=== PATIENT | female | born 1985 | race Caucasian/White ===

== ENCOUNTER → 2023-05-14 14:17 | Outpatient (REF) | payer OTHER, SELFPAY | LOC: WDC 14:17 | PROVIDERS: ATTENDING PHYSICIAN Nurse Practitioner Family | DX: Z12.31 Encounter for screening mammogram for malignant neoplasm of breast (principal); Z87.81 Personal history of (healed) traumatic fracture | CPT/HCPCS: 77063; 77067; 77080 ==

== ENCOUNTER → 2023-05-21 09:27 | Outpatient (REF) | payer OTHER, SELFPAY | LOC: WDC 09:27 | PROVIDERS: ATTENDING PHYSICIAN Nurse Practitioner Family | DX: R92.8 Other abnormal and inconclusive findings on diagnostic imaging of breast (principal) | CPT/HCPCS: 76642 ==

== ENCOUNTER → 2023-05-25 10:57 | Outpatient (REF) | payer OTHER, SELFPAY | LOC: RAD 10:57 | PROVIDERS: ATTENDING PHYSICIAN Physician Assistant | DX: R07.81 Pleurodynia (principal) | CPT/HCPCS: 71046 ==

== ENCOUNTER 2023-05-27 14:49 | Emergency (ER) | payer OTHER, SELFPAY ==
[2023-05-27 14:54] VITALS: BP 160/107
[2023-05-27 15:15] LABS: % Basophils 0.4 % (0-2); % Eosinophils 0.1 % (0-6); % Immature Granulocytes 0.4 % (0-0.5); % Lymphocytes 17.5 % (20.5-51.1); % Monocytes 5.6 % (1.7-9.3); Absolute Basophils 0.1 10^3/uL (0-0.2); Absolute Immature Granulocytes 0.1 10^3/uL (0-0.05); Absolute Lymphocytes 2.6 10^3/uL (1.2-3.4); Absolute Monocytes 0.8 10^3/uL (0.1-0.6); Absolute Neutrophils 11.3 10^3/uL (1.4-6.5); Hematocrit 41.1 % (37.0-47.0); Hemoglobin 14.5 g/dL (12.0-16.0); Mean Corp Hgb Conc. 35.3 g/dL (33.0-37.0); Mean Corpuscular Volume 85.1 fL (81.0-99.0); Mean Platelet Volume 11.2 fL (7.4-10.4); Nucleated Red Blood Cells % 0 %; Platelet Count 297 10^3/uL (130-400); Red Blood Cell Count 4.83 10^6/uL (4.20-5.40); Red Cell Dist. Width 12.5 % (11.5-14.5); White Blood Cell Count 14.8 10^3/uL (4.8-10.8)
[2023-05-27 15:30] LABS: ALT (SGPT) 31 U/L (0-35); AST (SGOT) 25 U/L (14-36); Albumin 4.8 g/dl (3.5-5.0); Alkaline Phosphatase 103 U/L (38-126); Blood Urea Nitrogen 15 mg/dl (7-17); Calcium 9.7 mg/dl (8.4-10.2); Carbon Dioxide 29 mmol/L (22-30); Chloride 104 mmol/L (98-107); Glucose 99 mg/dl (70-99); HCG, Serum Qualitative Screen Negative; Potassium 4.3 mmol/L (3.5-5.1); Sodium 139 mmol/L (135-145); Total Bilirubin 0.7 mg/dl (0.2-1.3); Total Protein 7.5 g/dl (6.3-8.2); eGFR > 60.00
[2023-05-27 15:40] LABS: Troponin I < 0.012 ng/ml
--- NOTE | 2023-05-27 18:16 | ED.GENMED ---
History of Present Illness
General
Chief Complaint: Chest Pain
Source: patient
Exam Limitations: none
Time Seen by Provider: 05/27/23 17:56
Travel History
Have you had any contact with someone who has COVID-19?: No
Do you have any symptoms of coronavirus? Fever > 100 degrees, chills, cough, shortness of breath, sore throat, loss of taste or smell, muscle aches, or headache?: No
History of Present Illness
History of Present Illness:
This is a 38 year old female that comes in with c/o chest pain for a month. State that she went to see her PCP and they thought it was a pulled muscle. States that she was given Naproxen and an inhaler. States that this did not help at all. States
that the pain is on the right side under the ribs ans wraps around to the back. States that they did a chest x-ray. States that the pain was worse since and she called the PCP and she was to have a CT tomorrow but her pain increased so was
told to come to the ER. States that she has chest pain, SOB, pain with coughing. and that her pain is under the sternum and still goes under the breast to the back. States that she has a headache, dizziness. States that she is also on a steroid
taper the 3rd day. Denies any fever, chills, abd pain, nausea, vomiting, diarrhea, Urinary burning.
Past History
Past History
ED Past Medical History: None; Negative Asthma, HTN, Hypercholesterolemia or NIDDM
ED Past Surgical History: Orthopedic ([place] knee surgery, Left ankle surgery)
Social History
Tobacco: Former smoker
Alcohol: Occasional
Personal:
Living: with family
Review of Systems
Review of Systems
All Other Systems: ROS reviewed and negative except as documented in HPI and ROS
Constitutional: Reports no symptoms; Denies fever or chills
EENT: Reports no symptoms
Respiratory: Reports cough and trouble breathing
Cardiac: Reports chest pain
ABD/GI: Reports no symptoms; Denies abdominal pain, nausea or vomiting
: Reports no symptoms
Musculoskeletal: Reports no symptoms
Skin: Reports no symptoms
Neurological: Reports dizzy and headache
Psychiatric: Reports no symptoms
Phy Exam
General Physical Exam
General Presentation: mild distress
General age: appears stated age
General Skin: warm and dry
General Habitus: normal
General Mental: alert
General Hydration: appears well hydrated
ENT Exam
ENT Exam: TM's normal, pharynx normal and neck supple
Eye Exam
Eye Exam: EOMI
Cardiovascular Exam
Cardiovascular Exam: regular rate/rhythm, no edema, no murmur and normal peripheral pulses
Pulmonary Exam
Pulmonary Exam: lungs clear, no respiratory distress, no rales, chest non tender, no crackles, no rhonchi, no wheezing and other (Occasional dry cough noted)
Gastrointestinal Exam
Gastrointestinal Exam: normal bowel sounds, non tender, soft, no organomegaly, no pulsatile mass and non distended
Musculoskeletal Exam
Musculoskeletal Exam: full ROM and no edema
Skin Exam
Skin Exam: normal color, warm/dry, no rash and no petechia
Psychiatric Exam
Psychiatric Exam: normal mood/affect
Scores
Heart Score for Chest Pain Patients
STEMI patient?: Not applicable
Course
Orders/Labs/Results
Orders:
Orders
05/27/23 14:50
EKG [Electrocardiogram (*1)] Urgent
Reason for Study: Chest Pain
05/27/23 14:51
EKG- Treatment ONCE
05/27/23 15:02
Test Result ONCE
Chest [CR Chest - 2 Views ] Urgent
Comment:
Reason For Exam: chest pain, shortness of breath
05/27/23 15:06
CBC/With Diff [Complete Blood Count/With Diff] Urgent
CMP [Comprehensive Metabolic Panel] Urgent
HCG, Serum Qualitative Screen Urgent
Troponin I Urgent
05/27/23 18:19
Dexamethasone Sod Phosphate [Decadron] 10 mg IV NOW STA
Ketorolac [Toradol] 30 mg IV NOW STA
Pantoprazole [Protonix IV] 40 mg IV NOW STA
05/27/23 18:22
CT Chest Angio W/wo Iv Contras Urgent
Comment: attention aorta
Reason For Exam: Chest pain, SOB, cough
05/27/23 19:33
HydrALAZINE [Apresoline] 5 mg IV NOW STA
Abnormal Lab Results
05/27/23
15:06
WBC 14.8 H 10^3/uL
(4.8-10.8)
MPV 11.2 H fL
(7.4-10.4)
Abs Immat Gran (auto) 0.1 H 10^3/uL
(0-0.05)
Absolute Neuts (auto) 11.3 H 10^3/uL
(1.4-6.5)
Absolute Monos (auto) 0.8 H 10^3/uL
(0.1-0.6)
Neutrophils % 76.0 H %
(42.2-75.2)
Lymphocytes % 17.5 L %
(20.5-51.1)
05/27/23 15:06
05/27/23 15:06
Leukocytosis, Troponin <0.012, HCG negative.
Vital Signs
Initial and Last Documented VS:
Initial Vital Signs
Temp Pulse Resp BP Pulse Ox
98.0 F 104 18 160/107 100
05/27/23 14:54 05/27/23 14:54 05/27/23 14:54 05/27/23 14:54 05/27/23 14:54
Last Documented Vital Signs
Temp Pulse Resp BP Pulse Ox
98.0 F 85 16 170/107 97
05/27/23 14:54 05/27/23 19:38 05/27/23 18:45 05/27/23 19:38 05/27/23 19:32
MDM/Problems Addressed
Differential Diagnosis Includes:
Aortic dissection, Gallbladder disease, PE
MDM/Problems Addressed:
This is a 38 year old female that comes in with c/o chest pain for the past month. States that she is SOB, has a cough and that her pain is continuing to get worse.
Will get labs CTA of chest. US limited of gallbladder.
Back into See patient. Explained that her CT is normal. Gallbladder is contracted. Will medicated patient for Hypertension and then recheck. BP at this time 170/107
BP down to 157/104. Will place patient on Lisinopril and have her follow up with the family doctor. Patient to return with any concerns.
BP rechecked 157/97
Chronic conditions affecting care:
NA
Acute Exacerbation and/or Progression of Chronic Illness:
NA
*Radiology
Radiology exam reviewed: radiology read reviewed (CTA chest- No evidence of thoracic aortic aneurysm/dissection or central pulmonary embolism. Markedly contracted gallbladder, likely postprandial, large volume fluid material seen within the stomach.
Chest=Slight soft tissue prominence again seen in the expected location of the ascending thoracic ) and other (Chest cont- thoracic aorta, cannot exclude aneurysm or dissection. )
*Pulse Oximetry
Patient hypoxic: yes
*EKG
Interpreted by ED Provider?: Yes
Heart Rate: 106
Rate: tachycardiac
Rhythm: sinus tachycardia
[place]: normal axis
Interval: normal interval
QRS Pattern: normal QRS
Ischemia: non-specific ST changes
*Critical Care Note
Total Time (30-74mins, 75-104mins- exclusive of procedures): Not Applicable
ED Attending Note
-
Portions of this chart may have been created with voice recognition software.� Occasional wrong word or��sound alike� substitutions may have occurred due to the inherent limitations of voice recognition software.
Discharge Plan
Departure
Patient Disposition: Home (Routine Discharge)
Date of Disposition: 05/27/23
Time of Disposition: 20:56
Patient with high blood pressure during this ER visit?: Yes
Condition: Good
Covid-19: Not Applicable
Discharge Problem:
Chest pain
Instructions: Chest Pain PCP Follow Up, BLOOD PRESSURE
Prescriptions:
New
lisinopril 5 mg tablet
5 mg PO DAILY Qty: 30 0RF
pantoprazole [Protonix] 40 mg tablet,delayed release (DR/EC)
40 mg PO DAILY Qty: 30 0RF
Referrals:
Tess Pearl CRNP [Family Provider] - Follow up in 2-3 days
Activity Restrictions/Additional Instructions:
As discussed, your blood work shows that the WBC's are mildly elevated. This can happen with stress. Your CT of the chest is normal. You have been given medication for your Hypertension. Please take as directed and follow up with the family doctor
for recheck. You have also been given a prescription to help with any reflux. Please take them at least 2 hour apart. IF YOU HAVE INCREASED OR CHANGING PAIN, OR YOU HAVE ANY OTHER CONCERNS PLEASE RETURN TO THE EMERGENCY ROOM
Interventions
Interventions:
*Risk Screen - Suicide Last Done: 05/27/23 14:54
*General Assessment Last Done: 05/27/23 14:54
*Neglect/Abuse Screening Last Done: 05/27/23 14:54
ED- Fall Risk Assessment Last Done: 05/27/23 18:23
*ED COVID-19 Vaccine History Last Done: 05/27/23 14:54
ED- Cardiac Assessment Last Done: 05/27/23 18:23
[2023-05-27 18:20] VITALS: BP 142/103
[2023-05-27 18:23] VITALS: BMI 29.5
[2023-05-27] MEDS: DECADRON 10 MG IV (18:38)
[2023-05-27] MEDS: PROTONIX IV 40 MG IV (18:38)
[2023-05-27 19:32] VITALS: BP 170/107
[2023-05-27] MEDS: APRESOLINE 5 MG IV (19:38)
[2023-05-27 20:00] VITALS: BP 157/104
[2023-05-27 21:00] VITALS: BP 157/97
[2023-05-27] MEDS: ZESTRIL 5 MG PO (21:12)
== END 2023-05-27 21:28 | disposition home or self-care (01) ==
LOC: EMR 14:49
PROVIDERS: Emergency Medicine; EMERGENCY PHYSICIAN Student in an Organized Health Care Education/Training Program; FAMILY PHYSICIAN Nurse Practitioner Family
DX: R07.9 Chest pain, unspecified (principal); R06.02 Shortness of breath; R05.9 Cough, unspecified; R03.0 Elevated blood-pressure reading, without diagnosis of hypertension; Z87.891 Personal history of nicotine dependence
CPT/HCPCS: 99285; 96374; 96375 ×2; 71046; 71275; 80053; 84484; 84703; 85025; 93005; Q9967

== ENCOUNTER → 2024-04-12 14:52 | Outpatient (REF) | payer OTHER, SELFPAY | LOC: RAD 14:52 | PROVIDERS: ATTENDING PHYSICIAN Internal Medicine Rheumatology; FAMILY PHYSICIAN Nurse Practitioner Family | DX: L40.50 Arthropathic psoriasis, unspecified (principal) | CPT/HCPCS: 73130 ==

== ENCOUNTER → 2024-05-17 13:35 | Outpatient (REF) | payer OTHER, SELFPAY | LOC: WDC 13:35 | PROVIDERS: ATTENDING PHYSICIAN Nurse Practitioner Family | DX: Z12.31 Encounter for screening mammogram for malignant neoplasm of breast (principal) | CPT/HCPCS: 77063; 77067 ==